=== PATIENT | male | born 1940 | race Caucasian/White ===

== ENCOUNTER 2019-03-12 17:50 | Observation (INO) | payer OTHER ==
[2019-03-12 18:36] VITALS: BMI 28.1
--- NOTE | 2019-03-12 19:05 | PDOC ---
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 Last night, noted chills, cloudy urine. Symptoms similar to previous episodes when he had UTI. This morning woke up with SOB worse with sitting up and exertion. Denied recent travel. Denied fevers, nausea/vomiting, cough, chest pain, AB pain, diarrhea/constipation. Past History - Past Medical History Allergies/Adverse Reactions: Allergies Allergy/AdvReac Type Severity Reaction Status Date / Time levofloxacin [From Levaquin] Allergy Verified 03/12/19 17:57 Home Medications: Ambulatory Orders Lovastatin 40 mg PO HS 12/17/11 Topiramate [Topamax] 50 mg PO HS 12/17/11 Aspirin Coated [Ecotrin -] 81 mg PO DAILY #0 tablet.ec 11/02/14 Cholecalciferol (Vitamin D3) [Vitamin D3 -] 400 unit PO DAILY 03/12/19 Cardiac Disorders: Yes COPD: No GI Disorders: Yes (DIVERTICULITIS) Disorders: Yes (BPH) Hypercholesterolemia: Yes (LIPITO) Seizures: Yes - Surgical History Orthopedic Surgery: Yes (MENISCUS) - Suicide/Smoking/Psychosocial Hx Smoking Status: Yes Smoking History: Former smoker Have you smoked in the past 12 months: No Number of Cigarettes Smoked Daily: 0 Information on smoking cessation initiated: No Hx Alcohol Use: No Drug/Substance Use Hx: No Hx Substance Use Treatment: No Review of Systems - Review of Systems Constitutional: Yes: Chills. No: Fever, Malaise, Weakness HEENTM: No: Eye Pain, Nose Pain, Hearing Loss, Throat Pain, Mouth Pain Respiratory: No: Cough, Shortness of Breath Cardiac (ROS): No: Chest Pain, Edema, Lightheadedness, Palpitations, Syncope ABD/GI: No: Abdominal Distended, Constipated, Diarrhea, Nausea, Rectal Bleeding , Vomiting : Yes: Other (cloudy urine). No: Burning, Dysuria, Discharge, Frequency, Flank Pain, Hematuria, Incontinence Musculoskeletal: No: Back Pain, Joint Pain, Joint Swelling, Muscle Pain Integumentary: No: Bruising, Dryness, Erythema, Flushing Neurological: No: Headache, Numbness, Seizure, Tingling, Tremors Psychiatric: No: Anxiety, Depression Endocrine: No: Excessive Sweating, Flushing, Intolerance to Cold, Intolerance to Heat Hematologic/Lymphatic: No: Anemia, Blood Clots, Easy Bleeding *Physical Exam - Vital Signs Last Vital Signs Temp Pulse Resp BP Pulse Ox 98.4 F 93 H 22 H 111/72 96 03/12/19 17:54 03/12/19 17:54 03/12/19 17:54 03/12/19 17:54 03/12/19 17:54 - Physical Exam General Appearance: Yes: Nourished, Appropriately Dressed, Mild Distress HEENT: positive: EOMI, NESHA, Normal Voice, Hearing Grossly Normal. negative: Pale Conjunctivae, Nasal Congestion, Rhinorrhea, Lesions, Gomez Respiratory/Chest: positive: Lungs Clear, Normal Breath Sounds, Respiratory Distress, Labored Respiration. negative: Chest Tender, Accessory Muscle Use, Crackles, Rales, Rhonchi, Stridor, Wheezing Cardiovascular: positive: Regular Rhythm, Regular Rate, S1, S2. negative: Edema , Murmur Gastrointestinal/Abdominal: positive: Normal Bowel Sounds, Tender (LUQ, L flank) , Distended (baseline), Rebound (LUQ, L flank). negative: Organomegaly, Guarding, Hernia, Mass Integumentary: positive: Normal Color Neurologic: positive: Fully Oriented, Alert, Normal Mood/Affect, Normal Response , Motor Strength 5/5, Responsive. negative: Numbness, Confused, Disoriented Heart Score/ECG Review - History History: Slightly suspicious - Electrocardiogram EKG: Normal - Age Age: >/= 65 - Risk Factors Risk Factors Heart Score: Yes Hx Hypercholesterolemia, Yes Hx Hypertension, Yes Smoking History Based on the list above the patient has:: >/=3 risk factors or Hx atherosclerotic disease - Troponin Troponin: </= normal limit - Score Heart Score - Total: 4 ED Treatment Course - LABORATORY CBC & Chemistry Diagram: 03/12/19 19:35 03/12/19 19:35 - RADIOLOGY Radiology Studies Ordered: Category Date Time Status CHEST PA & LAT [RAD] Stat Radiology 03/12/19 19:04 Ordered Medical Decision Making - Medical Decision Making 03/12/19 19:24 EKG CXR CBC CMP d-dimer lactate UA BNP Attending noted rigors on exam. 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 UA showed leuk esterase indicating UTI. Trop negative, Cr 2.1 baseline. Attending noted rigors on exam - given tylenol, blood/urine cx, 1g IV rocephin. SOB resolved in ED. Plan to admit to obvs for UTI and cardiac observation. Signed out to Dr. Washburn *DC/Admit/Observation/Transfer Diagnosis at time of Disposition: UTI (urinary tract infection) Qualifiers: Urinary tract infection type: acute cystitis Hematuria presence: without hematuria Qualified Code(s): N30.00 - Acute cystitis without hematuria - Discharge Dispostion Condition at time of disposition: Stable Decision to Admit order: Yes - Referrals - Patient Instructions - Post Discharge Activity
[2019-03-12] MEDS ORDERED: ACETAMINOPHEN 1000 MG/100 ML VIAL (NON FORMULARY) IVPB ONE ×2 (19:28→19:39)
[2019-03-12] MEDS ORDERED: ACETAMINOPHEN 500 MG TABLET (FP) PO ONE (19:30)
[2019-03-12] MEDS ORDERED: ACETAMINOPHEN 500 MG TABLET (FP) ONE (19:31)
--- NOTE | 2019-03-12 19:31 | PDOC ---
Attending Attestation - ED Attending Attestation I have performed the following: I have examined & evaluated the patient, The case was reviewed & discussed with the resident, I agree w/resident's findings & plan, Exceptions are as noted - HPI HPI: 03/12/19 19:34 This is a 78-year-old male with hypertension, hyperlipidemia, coronary artery disease status post stent placed May 2014. Patient also has frequent urinary tract infection secondary to a neurogenic bladder that requires self- catheterization 3 times a day. Patient's neurogenic bladder is a result of frequent abdominal surgeries for small bowel obstruction. Patient also has an atrophic right kidney since patient comes in today complaining of shortness of breath and shaking chills with a foul-smelling urine. As per patient he would not come in for the urinary symptoms as he does have an antibiotic that he started this morning however the shortness of breath prompted him to come in for further evaluation. He denies any abdominal pain, flank pain, nausea vomiting or diarrhea. Patient denies any chest pain or diaphoresis. Patient's last dose of Tylenol was approximately 4 hours ago. When I went in to examine patient he was experiencing aching chills. - Physicial Exam PE: 03/12/19 19:36 Allergies: as per nursing notes Past Medical History: As per history of present illness Social history: Lives with family. No smoking. No alcohol. No illicit drugs. Surgical history: As per history of present illness General: + fevers + shaking chills, no weakness, no weight loss HEENT: No change in vision. No sore throat,. No ear pain CardioVascular: no chest discomfort. + shortness of breath Respiratory:No cough, or wheezing. Gastrointestinal: no nausea, vomiting, diarrhea or constipation, No rectal bleeding Genitourinary: + dysuria, hematuria, or frequency, + foul smelling, cloudy urine Musculoskeletal: No joint or muscle pain or swelling Neurologic: No headache, vertigo, dizziness or loss of consciousness Psychiatric: nor depression Skin: No rashes or easy bruising Endocrine: no increased thirst or abnormal weight change Allergic: no skin or latex allergy All other systems reviewed and normal Exam: General: Well-nourished well-developed individual, no acute distress, experiencing shaking chills. HEENT: Throat: Normal, tonsils normal, no erythema or exudate Neck: Supple, no meningeal signs, no lymphadenopathy Eyes::Pupils equal reactive and round, extraocular motion intact Chest: Nontender to palpation Cardiac: S1-S2 normal, regular rate and rhythm, no murmurs rubs or gallops Respiratory: Lungs clear to auscultation bilateral Abdomen: Soft, nondistended, normal bowel sounds, there is no tenderness on palpation diffusely Extremities: Warm, dry, no cyanosis, clubbing, or edema Skin: No rashes Neuro: Alert and oriented x3, CN II - XII intact, nonfocal exam with normal strength, normal sensation, normal reflexes, normal gait, Psych: Normal mood and affect - Medical Decision Making 03/12/19 19:41 Assessment and plan: This is 78-year-old male who comes in complaining of urinary tract infection symptoms including Reiger's foul-smelling urine and also complaining of shortness of breath. Workup initiated in conjunction with discussion with resident including CBC, comp, UA. Urine culture, blood cultures, lactic acid, d-dimer, BMP. patient given Tylenol for his fever and IV fluids. 03/12/19 20:28 Chest x-ray no acute pathology EKG shows normal sinus rhythm at a rate of 87, old inferior infarct, no acute ST -T wave changes
[2019-03-12] MEDS ORDERED: ACETAMINOPHEN INJECTION 100 ML IVPB ONE (19:33)
[2019-03-12 20:04] LABS: HEMOGLOBIN 15.7 GM/dl (11.7-16.9)
[2019-03-12 20:06] LABS: BILIRUBIN,TOTAL 0.6 mg/dl (0.2-1); CALCIUM 9.2 mg/dl (8.5-10); CREATININE 2.1 mg/dl (0.55-1.3); POTASSIUM 4.5 mmol/L (3.5-5.1); TOT PROT 6.6 g/dl (6.4-8.2)
[2019-03-12 20:12] LABS: BASO % 0.3 % (0-2.0); EOS % 0.3 % (0-4.5); HEMATOCRIT 46.4 % (35.4-49); LYMPH % 5.8 % (8-40); MCH 31.5 pg (25.7-33.7); MCHC 33.8 g/dl (32.0-35.9); MEAN CELL VOLUME 93.1 fl (80-96); MONO % 4.4 % (3.8-10.2); NEUT % 89.2 % (42.8-82.8); PLATELET COUNT 211 K/MM3 (134-434); RBC 4.99 M/mm3 (4.00-5.60); WHITE BLOOD COUNT 11.3 K/mm3 (4.0-10.8)
[2019-03-12] MEDS ORDERED: cefTRIAXone SODIUM 1 GM VIAL ONE (21:25)
--- NOTE | 2019-03-12 22:33 | HP ---
CHIEF COMPLAINT: SOB, Fever, Chills, Foul Smelling Urine PCP: Dr. Mary HISTORY OF PRESENT ILLNESS: This is a 78 y/o man with significant medical history of CAD s/p Stent 2014, HLD , Atrophic R- Kidney (from ), Renal Insufficiency, Spastic/Neurogenic Bladder (due to multiple Abdominal Sx, self-catheterization), Chronic UTIs. Who presents to the ED for SOB at rest, subjective fever 101, shaking, chills, and foul smelling urine. Patient reports noting his urine was a "creamy white color " he called his PCP who started him on Macrobid yesterday. Patient denies chest pain, palpitations. arm or leg pain/weakness. Patient denies cough, dizziness, HURLEY, AP, N/V/D, constipation, melena, hematuria ER course was notable for: (1) UA- +1 leukocyte esterase, 20-40 WBC, trace ketones, +1 bilirubin (2) WBC 11.3 withL shift (3) BUN 29, Cr 2.1 (4) Troponin < 0.03 (5) EKG- NSR with inferior infarct age undetermined Recent Travel: None PAST MEDICAL HISTORY: See HPI PAST SURGICAL HISTORY: See HPI Social History: Smoking: Former Alcohol: Denies Drugs: Denies Retired, lives with souse Family History: Allergies levofloxacin [From Levaquin] Allergy (Verified 03/12/19 17:57) HOME MEDICATIONS: Home Medications Medication Instructions Recorded Lovastatin 40 mg PO HS 12/17/11 Topiramate [Topamax] 50 mg PO HS 12/17/11 Aspirin Coated [Ecotrin -] 81 mg PO DAILY #0 tablet.ec 11/02/14 Cholecalciferol (Vitamin D3) 400 unit PO DAILY 03/12/19 [Vitamin D3 -] REVIEW OF SYSTEMS CONSTITUTIONAL: Absent: fever, chills, diaphoresis, generalized weakness, malaise, loss of appetite, weight change HEENT: Absent: rhinorrhea, nasal congestion, throat pain, throat swelling, difficulty swallowing, mouth swelling, ear pain, eye pain, visual changes CARDIOVASCULAR: Absent: chest pain, syncope, palpitations, irregular heart rate, lightheadedness , peripheral edema RESPIRATORY: shortness of breath Absent: cough, dyspnea with exertion, orthopnea, wheezing, stridor, hemoptysis GASTROINTESTINAL: Absent: abdominal pain, abdominal distension, nausea, vomiting, diarrhea, constipation, melena, hematochezia GENITOURINARY: foul smelling urine, creamy white in color Absent: dysuria, frequency, urgency, hesitancy, hematuria, flank pain, genital pain MUSCULOSKELETAL: Absent: myalgia, arthralgia, joint swelling, back pain, neck pain SKIN: Absent: rash, itching, pallor HEMATOLOGIC/IMMUNOLOGIC: Absent: easy bleeding, easy bruising, lymphadenopathy, frequent infections ENDOCRINE: Absent: unexplained weight gain, unexplained weight loss, heat intolerance, cold intolerance NEUROLOGIC: Absent: headache, focal weakness or paresthesias, dizziness, unsteady gait, seizure, mental status changes, bladder or bowel incontinence PSYCHIATRIC: Absent: anxiety, depression, suicidal or homicidal ideation, hallucinations. PHYSICAL EXAMINATION Vital Signs - 24 hr 03/12/19 03/12/19 17:54 20:28 Temperature 98.4 F 98.7 F Pulse Rate 93 H Pulse Rate [ 78 Right] Respiratory 22 H 20 Rate Blood Pressure 111/72 Blood Pressure 124/63 [Left Arm] O2 Sat by Pulse 96 97 Oximetry (%) GENERAL: Awake, alert, and fully oriented, in no acute distress. HEAD: Normal with no signs of trauma. EYES: Pupils equal, round and reactive to light, extraocular movements intact, sclera anicteric, conjunctiva clear. No lid lag. EARS, NOSE, THROAT: Ears normal, nares patent, oropharynx clear without exudates. Dry mucous membranes. NECK: Normal range of motion, supple without lymphadenopathy, JVD, or masses. LUNGS: Breath sounds equal, clear to auscultation bilaterally. No wheezes, and no crackles. No accessory muscle use. HEART: Regular rate and rhythm, normal S1 and S2 without murmur, rub or gallop. ABDOMEN: Soft, nontender, not distended, normoactive bowel sounds, no guarding, no rebound, no masses. No hepatomegaly or splenomegaly. MUSCULOSKELETAL: Normal range of motion at all joints. No bony deformities or tenderness. No CVA tenderness. UPPER EXTREMITIES: 2+ pulses, warm, well-perfused. No cyanosis. No clubbing. No peripheral edema. LOWER EXTREMITIES: 2+ pulses, warm, well-perfused. No calf tenderness. No peripheral edema. NEUROLOGICAL: Cranial nerves II-XII intact. Normal speech. Gait not observed. PSYCHIATRIC: Cooperative. Good eye contact. Appropriate mood and affect. SKIN: Warm, dry, normal turgor, no rashes or lesions noted, normal capillary refill. Laboratory Results - last 24 hr 03/12/19 03/12/19 03/12/19 19:35 19:35 19:35 WBC 11.3 H RBC 4.99 Hgb 15.7 Hct 46.4 MCV 93.1 MCH 31.5 MCHC 33.8 RDW 14.0 Plt Count 211 D MPV 8.0 Absolute Neuts (auto) 10.1 Neutrophils % 89.2 H D Lymphocytes % 5.8 L D Monocytes % 4.4 Eosinophils % 0.3 D Basophils % 0.3 D-Dimer Sodium 143 Potassium 4.5 Chloride 113 H Carbon Dioxide 23 Anion Gap 7 L BUN 29.0 H Creatinine 2.1 H Est GFR (CKD-EPI)AfAm 33.92 Est GFR (CKD-EPI)NonAf 29.27 Random Glucose 103 Lactic Acid Calcium 9.2 Total Bilirubin 0.6 AST 22 ALT 14 Alkaline Phosphatase 62 Creatine Kinase 86 Troponin I < 0.03 B-Natriuretic Peptide Total Protein 6.6 Albumin 4.0 Urine Color Urine Appearance Urine pH Urine Protein Urine Glucose (UA) Urine Ketones Urine Blood Urine Nitrite Urine Bilirubin Urine Urobilinogen Ur Leukocyte Esterase Urine RBC Urine WBC Urine Bacteria 03/12/19 03/12/19 03/12/19 19:35 19:35 19:35 WBC RBC Hgb Hct MCV MCH MCHC RDW Plt Count MPV Absolute Neuts (auto) Neutrophils % Lymphocytes % Monocytes % Eosinophils % Basophils % D-Dimer Cancelled Sodium Potassium Chloride Carbon Dioxide Anion Gap BUN Creatinine Est GFR (CKD-EPI)AfAm Est GFR (CKD-EPI)NonAf Random Glucose Lactic Acid 1.8 Calcium Total Bilirubin AST ALT Alkaline Phosphatase Creatine Kinase Troponin I B-Natriuretic Peptide 293.3 Total Protein Albumin Urine Color Urine Appearance Urine pH Urine Protein Urine Glucose (UA) Urine Ketones Urine Blood Urine Nitrite Urine Bilirubin Urine Urobilinogen Ur Leukocyte Esterase Urine RBC Urine WBC Urine Bacteria 03/12/19 20:35 WBC RBC Hgb Hct MCV MCH MCHC RDW Plt Count MPV Absolute Neuts (auto) Neutrophils % Lymphocytes % Monocytes % Eosinophils % Basophils % D-Dimer Sodium Potassium Chloride Carbon Dioxide Anion Gap BUN Creatinine Est GFR (CKD-EPI)AfAm Est GFR (CKD-EPI)NonAf Random Glucose Lactic Acid Calcium Total Bilirubin AST ALT Alkaline Phosphatase Creatine Kinase Troponin I B-Natriuretic Peptide Total Protein Albumin Urine Color Dark Urine Appearance Slightly Urine pH 5.5 Urine Protein Trace Urine Glucose (UA) Negative Urine Ketones Trace Urine Blood Negative Urine Nitrite Negative Urine Bilirubin 1+ H Urine Urobilinogen 0.2 Ur Leukocyte Esterase 1+ Urine RBC 2-5 Urine WBC 20-40 Urine Bacteria Few ASSESSMENT/PLAN: This is a 78 y/o man with a significant medical hx of: CAD s/p Stent (2013), HLD , Atrophic R- Kidney (from ), Renal Insufficiency, Spastic/Neurogenic Bladder (due to multiple abdominal surgeries), Chronic UTIs. Placed in Observation for SOB on rest r/o Angina, UTI for further evaluation of their emergent condition. Plan: See Problem List FEN PO fluids as tolerated Replete lytes prn Low Cholesterol, Low Na Diet DVT ppx OOB SCDs Consider AC if LOS > 48 hrs Dispo: Observation Problem List - Problem (1) SOB (shortness of breath) Assessment/Plan: r/o Angina HEART Score 4 Continue cardiac monitoring Serial Enzymes neg x1, trend Chest Xray- reviewed Duonebs prn O2 Consider Cardiology consult Consider Pulm consult Code(s): R06.02 - SHORTNESS OF BREATH (2) Urinary tract infection Assessment/Plan: Will treat for Failed Outpatient Therapy, Complicated UTI UA- +1 leukocyte esterase, 20-40 WBCs Urine culture-pending WBC 11.3 with L- shift Lactic acid- nl Started on Ceftriaxone will continue Consider ID consult Monitor CBC Monitor vitals Code(s): N39.0 - URINARY TRACT INFECTION, SITE NOT SPECIFIED Qualifiers: Urinary tract infection type: acute cystitis Hematuria presence: without hematuria Qualified Code(s): N30.00 - Acute cystitis without hematuria (3) Fever and chills Assessment/Plan: see above Code(s): R50.9 - FEVER, UNSPECIFIED (4) CAD (coronary artery disease) Assessment/Plan: s/p Stent EKG- NSR, inferior infarct age undetermined Chest Xray- reviewed Continue home meds Code(s): I25.10 - ATHSCL HEART DISEASE OF [place] CORONARY ARTERY W/O ANG PCTRS Visit type - Emergency Visit Emergency Visit: Yes ED Registration Date: 03/12/19 Care time: The patient presented to the Emergency Department on the above date and was hospitalized for further evaluation of their emergent condition. - New Patient This patient is new to me today: Yes Date on this admission: 03/12/19 - Critical Care Critical Care patient: No
[2019-03-13] MEDS ORDERED: ACETAMINOPHEN 325 MG TABLET (FP) PO PRN (01:00)
[2019-03-13 07:44] LABS: BASO % 0.3 % (0-2.0); EOS % 1.1 % (0-4.5); HEMATOCRIT 42.7 % (35.4-49); HEMOGLOBIN 13.8 GM/dl (11.7-16.9); LYMPH % 11.1 % (8-40); MCH 30.1 pg (25.7-33.7); MCHC 32.3 g/dl (32.0-35.9); MEAN CELL VOLUME 93.2 fl (80-96); MEAN PLT VOLUME 8.2 fl (7.5-11.1); MONO % 11.6 % (3.8-10.2); NEUT % 75.9 % (42.8-82.8); PLATELET COUNT 167 K/MM3 (134-434); RBC 4.59 M/mm3 (4.00-5.60); RDW 13.9 % (11.9-15.9); WHITE BLOOD COUNT 7.2 K/mm3 (4.0-10.8)
[2019-03-13 08:48] LABS: CALCIUM 8.5 mg/dl (8.5-10); CREATININE 2.1 mg/dl (0.55-1.3); POTASSIUM 3.7 mmol/L (3.5-5.1)
[2019-03-13] MEDS ORDERED: CEFTRIAXONE 1 G/50 ML PREMIX 50 ML IVPB SCH (10:00)
--- NOTE | 2019-03-13 11:42 | PN ---
Physical Exam: SUBJECTIVE: Patient seen and examined OBJECTIVE: Vital Signs Period Temp Pulse Resp BP Sys/Benavidez Pulse Ox Last 24 Hr 98.4 F-99.6 F 63-93 17-22 100-124/49-72 96-97 GENERAL: The patient is awake, alert, and fully oriented, in no acute distress. HEAD: Normal with no signs of trauma. EYES: PERRL, extraocular movements intact, sclera anicteric, conjunctiva clear. No ptosis. ENT: Ears normal, nares patent, oropharynx clear without exudates, moist mucous membranes. NECK: Trachea midline, full range of motion, supple. LUNGS: Breath sounds equal, clear to auscultation bilaterally, no wheezes, no crackles, no accessory muscle use. HEART: Regular rate and rhythm, S1, S2 without murmur, rub or gallop. ABDOMEN: Soft, nontender, nondistended, normoactive bowel sounds, no guarding, no rebound, no hepatosplenomegaly, no masses. EXTREMITIES: 2+ pulses, warm, well-perfused, no edema. NEUROLOGICAL: Cranial nerves II through XII grossly intact. Normal speech, gait not observed. PSYCH: Normal mood, normal affect. SKIN: Warm, dry, normal turgor, no rashes or lesions noted Laboratory Results - last 24 hr 03/12/19 03/12/19 03/12/19 19:35 19:35 19:35 WBC 11.3 H RBC 4.99 Hgb 15.7 Hct 46.4 MCV 93.1 MCH 31.5 MCHC 33.8 RDW 14.0 Plt Count 211 D MPV 8.0 Absolute Neuts (auto) 10.1 Neutrophils % 89.2 H D Lymphocytes % 5.8 L D Monocytes % 4.4 Eosinophils % 0.3 D Basophils % 0.3 D-Dimer Sodium 143 Potassium 4.5 Chloride 113 H Carbon Dioxide 23 Anion Gap 7 L BUN 29.0 H Creatinine 2.1 H Est GFR (CKD-EPI)AfAm 33.92 Est GFR (CKD-EPI)NonAf 29.27 Random Glucose 103 Lactic Acid Calcium 9.2 Total Bilirubin 0.6 AST 22 ALT 14 Alkaline Phosphatase 62 Creatine Kinase 86 Troponin I < 0.03 B-Natriuretic Peptide Total Protein 6.6 Albumin 4.0 Triglycerides Cholesterol Total LDL Cholesterol HDL Cholesterol Urine Color Urine Appearance Urine pH Urine Protein Urine Glucose (UA) Urine Ketones Urine Blood Urine Nitrite Urine Bilirubin Urine Urobilinogen Ur Leukocyte Esterase Urine RBC Urine WBC Urine Bacteria 03/12/19 03/12/19 03/12/19 19:35 19:35 19:35 WBC RBC Hgb Hct MCV MCH MCHC RDW Plt Count MPV Absolute Neuts (auto) Neutrophils % Lymphocytes % Monocytes % Eosinophils % Basophils % D-Dimer Cancelled Sodium Potassium Chloride Carbon Dioxide Anion Gap BUN Creatinine Est GFR (CKD-EPI)AfAm Est GFR (CKD-EPI)NonAf Random Glucose Lactic Acid 1.8 Calcium Total Bilirubin AST ALT Alkaline Phosphatase Creatine Kinase Troponin I B-Natriuretic Peptide 293.3 Total Protein Albumin Triglycerides Cholesterol Total LDL Cholesterol HDL Cholesterol Urine Color Urine Appearance Urine pH Urine Protein Urine Glucose (UA) Urine Ketones Urine Blood Urine Nitrite Urine Bilirubin Urine Urobilinogen Ur Leukocyte Esterase Urine RBC Urine WBC Urine Bacteria 03/12/19 03/13/19 03/13/19 20:35 00:00 00:00 WBC RBC Hgb Hct MCV MCH MCHC RDW Plt Count MPV Absolute Neuts (auto) Neutrophils % Lymphocytes % Monocytes % Eosinophils % Basophils % D-Dimer Sodium Potassium Chloride Carbon Dioxide Anion Gap BUN Creatinine Est GFR (CKD-EPI)AfAm Est GFR (CKD-EPI)NonAf Random Glucose Lactic Acid Calcium Total Bilirubin AST ALT Alkaline Phosphatase Creatine Kinase Troponin I Cancelled < 0.02 B-Natriuretic Peptide Total Protein Albumin Triglycerides Cholesterol Total LDL Cholesterol HDL Cholesterol Urine Color Dark Urine Appearance Slightly Urine pH 5.5 Urine Protein Trace Urine Glucose (UA) Negative Urine Ketones Trace Urine Blood Negative Urine Nitrite Negative Urine Bilirubin 1+ H Urine Urobilinogen 0.2 Ur Leukocyte Esterase 1+ Urine RBC 2-5 Urine WBC 20-40 Urine Bacteria Few 03/13/19 03/13/19 03/13/19 07:09 07:09 07:09 WBC 7.2 RBC 4.59 Hgb 13.8 Hct 42.7 MCV 93.2 MCH 30.1 MCHC 32.3 RDW 13.9 Plt Count 167 D MPV 8.2 Absolute Neuts (auto) 5.5 Neutrophils % 75.9 Lymphocytes % 11.1 D Monocytes % 11.6 H D Eosinophils % 1.1 D Basophils % 0.3 D-Dimer Sodium 139 Potassium 3.7 Chloride 111 H Carbon Dioxide 20 L Anion Gap 8 BUN 28.0 H Creatinine 2.1 H Est GFR (CKD-EPI)AfAm 33.92 Est GFR (CKD-EPI)NonAf 29.27 Random Glucose 106 Lactic Acid Calcium 8.5 Total Bilirubin AST ALT Alkaline Phosphatase Creatine Kinase Troponin I < 0.03 B-Natriuretic Peptide Total Protein Albumin Triglycerides 116 Cholesterol 137 Total LDL Cholesterol 85 HDL Cholesterol 29 L Urine Color Urine Appearance Urine pH Urine Protein Urine Glucose (UA) Urine Ketones Urine Blood Urine Nitrite Urine Bilirubin Urine Urobilinogen Ur Leukocyte Esterase Urine RBC Urine WBC Urine Bacteria Active Medications Generic Name Dose Route Start Last Admin Trade Name Freq PRN Reason Stop Dose Admin Acetaminophen 650 mg 03/13/19 01:00 Tylenol - PO Q6H PRN PAIN OR FEVER Ceftriaxone Sodium 50 mls @ 200 mls/hr 03/13/19 10:00 03/13/19 10:20 Ceftriaxone 1 Gm-D5w Bag IVPB 03/16/19 09:59 200 mls/hr DAILY HUMBLE Administration Protocol ASSESSMENT/PLAN: SOB troponins neg x 3 BNP wnl pre post not orthostatic echo call daycare worker
[2019-03-13] MEDS ORDERED: TOPIRAMATE 25 MG TABLET (FP) PO SCH (11:45)
[2019-03-13] MEDS ORDERED: PATIENT'S OWN MEDICATION (NON-FORMULARY) (Topiramate [Topamax] 50 MG) PO SCH (11:45)
--- NOTE | 2019-03-13 13:42 | EKG ---
Test Reason : Blood Pressure : / mmHG Vent. Rate : 087 BPM Atrial Rate : 087 BPM P-R Int : 148 ms QRS Dur : 078 ms QT Int : 348 ms P-R-T Axes : 055 002 065 degrees QTc Int : 418 ms NORMAL SINUS RHYTHM INFERIOR INFARCT , AGE UNDETERMINED ABNORMAL ECG NO PREVIOUS ECGS AVAILABLE Confirmed by Edward Lord MD ([id number]) on 03/13/2019 1:42:07 PM Referred By: DR NGUYEN Confirmed By:Edward Lord MD
[2019-03-13 14:20] VITALS: BP 118/71; PULSE 78; TEMP 98.6
--- NOTE | 2019-03-13 15:04 | ECHO ---
Name: LAURO VALDES Exam:Adult Echocardiogram Study Date: 03/13/2019 01:39 PM Age: 78 yrs Reason For Study: SOB Height: 68 in Weight: 185 lb BSA: 2.0 m2 MMode/2D Measurements & Calculations IVSd: 0.99 cm Ao root diam: 3.1 cm LVIDd: 3.9 cm LA dimension: 2.8 cm LVIDs: 2.2 cm LVPWd: 0.82 cm EDV(Teich): 66.7 ml LVOT diam: 2.0 cm ESV(Teich): 16.7 ml Doppler Measurements & Calculations MV E max marco: 92.7 cm/sec MV A max marco: 99.6 cm/sec MV dec slope: 427.2 cm/sec2 MV E/A: 0.93 Ao V2 max: 149.2 cm/sec LV V1 max P.8 mmHg Ao max P.9 mmHg LV V1 max: 84.0 cm/sec ERIN(V,D): 1.8 cm2 MR max marco: 189.3 cm/sec TR max marco: 225.1 cm/sec MR max P.4 mmHg TR max P.3 mmHg PA V2 max: 121.7 cm/sec PI end-d marco: 106.0 cm/sec PA max P.9 mmHg Procedure A complete two-dimensional transthoracic echocardiogram was performed (2D, M-mode, Doppler and color flow Doppler). Left Ventricle The left ventricular size, thickness and function are normal. Ejection Fraction = 65%. E/A reversal c onsistent with but not diagnostic of poor LV compliance. The left ventricular wall motion is normal. Right Ventricle The right ventricle is normal in size and function. Atria Normal left and right atrial size and function. Mitral Valve There is mild mitral annular calcification. There is mild mitral regurgitation. Tricuspid Valve The tricuspid valve is normal in structure and function. There is trace tricuspid regurgitation. Righ t ventricular systolic pressure is 30 mmhg. Aortic Valve There is moderate aortic valve thickening. No hemodynamically significant valvular aortic stenosis. Pulmonic Valve The pulmonic valve is not well visualized. Great Vessels The aortic root is normal size. Pericardium/Pleura There is no pericardial effusion. There is no pleural effusion. Interpretation Summary The left ventricular size, thickness and function are normal Ejection Fraction = 65%. The right ventricle is normal in size and function. There is mild mitral annular calcification. There is mild mitral regurgitation. There is trace tricuspid regurgitation. There is moderate aortic valve thickening. Right ventricular systolic pressure is 30 mmhg. MD Edward Lord 03/13/2019 03:04 PM
--- NOTE | 2019-03-13 15:14 | DS ---
Physical Exam: SUBJECTIVE: Patient seen and examined OBJECTIVE: Vital Signs Period Temp Pulse Resp BP Sys/Benavidez Pulse Ox Last 24 Hr 98.4 F-99.6 F 63-93 17-22 98-124/49-72 96-100 PHYSICAL EXAM GENERAL: The patient is awake, alert, and fully oriented, in no acute distress. HEAD: Normal with no signs of trauma. EYES: PERRL, extraocular movements intact, sclera anicteric, conjunctiva clear. ENT: Ears normal, nares patent, oropharynx clear without exudates, moist mucous membranes. NECK: Trachea midline, full range of motion, supple. LUNGS: Breath sounds equal, clear to auscultation bilaterally, no wheezes, no crackles, no accessory muscle use. HEART: Regular rate and rhythm, S1, S2 without murmur, rub or gallop. ABDOMEN: Soft, nontender, nondistended, normoactive bowel sounds, no guarding, no rebound, no hepatosplenomegaly, no masses. EXTREMITIES: 2+ pulses, warm, well-perfused, no edema. NEUROLOGICAL: Cranial nerves II through XII grossly intact. Normal speech, gait not observed. PSYCH: Normal mood, normal affect. SKIN: Warm, dry, normal turgor, no rashes or lesions noted. LABS Laboratory Results - last 24 hr 03/12/19 03/12/19 03/12/19 19:35 19:35 19:35 WBC 11.3 H RBC 4.99 Hgb 15.7 Hct 46.4 MCV 93.1 MCH 31.5 MCHC 33.8 RDW 14.0 Plt Count 211 D MPV 8.0 Absolute Neuts (auto) 10.1 Neutrophils % 89.2 H D Lymphocytes % 5.8 L D Monocytes % 4.4 Eosinophils % 0.3 D Basophils % 0.3 D-Dimer Sodium 143 Potassium 4.5 Chloride 113 H Carbon Dioxide 23 Anion Gap 7 L BUN 29.0 H Creatinine 2.1 H Est GFR (CKD-EPI)AfAm 33.92 Est GFR (CKD-EPI)NonAf 29.27 Random Glucose 103 Lactic Acid Calcium 9.2 Total Bilirubin 0.6 AST 22 ALT 14 Alkaline Phosphatase 62 Creatine Kinase 86 Troponin I < 0.03 B-Natriuretic Peptide Total Protein 6.6 Albumin 4.0 Triglycerides Cholesterol Total LDL Cholesterol HDL Cholesterol Urine Color Urine Appearance Urine pH Urine Protein Urine Glucose (UA) Urine Ketones Urine Blood Urine Nitrite Urine Bilirubin Urine Urobilinogen Ur Leukocyte Esterase Urine RBC Urine WBC Urine Bacteria 03/12/19 03/12/19 03/12/19 19:35 19:35 19:35 WBC RBC Hgb Hct MCV MCH MCHC RDW Plt Count MPV Absolute Neuts (auto) Neutrophils % Lymphocytes % Monocytes % Eosinophils % Basophils % D-Dimer Cancelled Sodium Potassium Chloride Carbon Dioxide Anion Gap BUN Creatinine Est GFR (CKD-EPI)AfAm Est GFR (CKD-EPI)NonAf Random Glucose Lactic Acid 1.8 Calcium Total Bilirubin AST ALT Alkaline Phosphatase Creatine Kinase Troponin I B-Natriuretic Peptide 293.3 Total Protein Albumin Triglycerides Cholesterol Total LDL Cholesterol HDL Cholesterol Urine Color Urine Appearance Urine pH Urine Protein Urine Glucose (UA) Urine Ketones Urine Blood Urine Nitrite Urine Bilirubin Urine Urobilinogen Ur Leukocyte Esterase Urine RBC Urine WBC Urine Bacteria 03/12/19 03/13/19 03/13/19 20:35 00:00 00:00 WBC RBC Hgb Hct MCV MCH MCHC RDW Plt Count MPV Absolute Neuts (auto) Neutrophils % Lymphocytes % Monocytes % Eosinophils % Basophils % D-Dimer Sodium Potassium Chloride Carbon Dioxide Anion Gap BUN Creatinine Est GFR (CKD-EPI)AfAm Est GFR (CKD-EPI)NonAf Random Glucose Lactic Acid Calcium Total Bilirubin AST ALT Alkaline Phosphatase Creatine Kinase Troponin I Cancelled < 0.02 B-Natriuretic Peptide Total Protein Albumin Triglycerides Cholesterol Total LDL Cholesterol HDL Cholesterol Urine Color Dark Urine Appearance Slightly Urine pH 5.5 Urine Protein Trace Urine Glucose (UA) Negative Urine Ketones Trace Urine Blood Negative Urine Nitrite Negative Urine Bilirubin 1+ H Urine Urobilinogen 0.2 Ur Leukocyte Esterase 1+ Urine RBC 2-5 Urine WBC 20-40 Urine Bacteria Few 03/13/19 03/13/19 03/13/19 07:09 07:09 07:09 WBC 7.2 RBC 4.59 Hgb 13.8 Hct 42.7 MCV 93.2 MCH 30.1 MCHC 32.3 RDW 13.9 Plt Count 167 D MPV 8.2 Absolute Neuts (auto) 5.5 Neutrophils % 75.9 Lymphocytes % 11.1 D Monocytes % 11.6 H D Eosinophils % 1.1 D Basophils % 0.3 D-Dimer Sodium 139 Potassium 3.7 Chloride 111 H Carbon Dioxide 20 L Anion Gap 8 BUN 28.0 H Creatinine 2.1 H Est GFR (CKD-EPI)AfAm 33.92 Est GFR (CKD-EPI)NonAf 29.27 Random Glucose 106 Lactic Acid Calcium 8.5 Total Bilirubin AST ALT Alkaline Phosphatase Creatine Kinase Troponin I < 0.03 B-Natriuretic Peptide Total Protein Albumin Triglycerides 116 Cholesterol 137 Total LDL Cholesterol 85 HDL Cholesterol 29 L Urine Color Urine Appearance Urine pH Urine Protein Urine Glucose (UA) Urine Ketones Urine Blood Urine Nitrite Urine Bilirubin Urine Urobilinogen Ur Leukocyte Esterase Urine RBC Urine WBC Urine Bacteria HOSPITAL COURSE: Date of Admission:03/12/19 Date of Discharge: 03/13/19 SOB troponins neg x 3 BNP wnl pre post not orthostatic echo call government affairs fellow Echo: LV normal, EF 65%; RV normal; mild MR; trace TR Discharge Summary Reason For Visit: SOB Current Active Problems CAD (coronary artery disease) (Acute) SOB (shortness of breath) (Acute) Urinary tract infection (Acute) Condition: Improved - Instructions Diet, Activity, Other Instructions: You have a urinary tract infection. You indicated you have a 10-day supply of Macrobid waiting to be picked up at your pharmacy. Be sure to take this medication as directed and finish all the medication. You should follow up with your urologist, Dr. Chris Burton when you finish the antibiotics. He may want to take a urine sample to make sure you cleared the infection. You should also follow up with your government affairs fellow, Dr. Francois, and tell him you had an echocardiagram done during your hospital stay. Referrals: Sathish Francois MD [Non Staff, Medical] - Alecia Mary MD [Staff Physician] - Disposition: HOME - Home Medications Comprehensive Discharge Medication List: Ambulatory Orders Lovastatin 40 mg PO HS 12/17/11 Topiramate [Topamax] 50 mg PO BID 12/17/11 Cholecalciferol (Vitamin D3) [Vitamin D3 -] 400 unit PO DAILY 03/12/19 Aspirin Coated [Ecotrin -] 81 mg PO HS 03/13/19 Pantoprazole Sodium [Protonix -] 20 mg PO DAILY 03/13/19
[2019-03-13] MEDS ORDERED: ASPIRIN COATED 81 MG TABLET.EC PO SCH (22:00)
[2019-03-13] MEDS ORDERED: ATORVASTATIN CA 10 MG TABLET (FP) PO SCH (22:00)
[2019-03-14] MEDS ORDERED: PANTOPRAZOLE 20 MG TABLET (FP) PO SCH (10:00)
== END 2019-03-13 15:43 | disposition home or self-care (01) ==
LOC: FER 17:50 → FM/S 22:15 → UNDOADMOB 23:05
PROVIDERS: ADMIT Internal Medicine; ATTEND Nurse Practitioner Acute Care
PROC: 3E03329 Introduction of Other Anti-infective into Peripheral Vein, Percutaneous Approach (ICD-10-PCS; principal; 2019-03-12)
PROC: 3E033NZ Introduction of Analgesics, Hypnotics, Sedatives into Peripheral Vein, Percutaneous Approach (ICD-10-PCS; 2019-03-12)
DX: N30.00 Acute cystitis without hematuria (principal); I10 Essential (primary) hypertension; E78.5 Hyperlipidemia, unspecified; I25.10 Atherosclerotic heart disease of native coronary artery without angina pectoris; N31.9 Neuromuscular dysfunction of bladder, unspecified; N32.81 Overactive bladder; N26.1 Atrophy of kidney (terminal); N40.0 Benign prostatic hyperplasia without lower urinary tract symptoms; G40.909 Epilepsy, unspecified, not intractable, without status epilepticus; R50.9 Fever, unspecified; R06.02 Shortness of breath
CPT/HCPCS: 36415; 71046-TC-FY; 80048; 80053; 80061; 81003; 81015; 82550; 83605; 83880; 84484; 85025; 87040; 87086; 93005; 93306-TC; 94761; 96365; 96375; 99284-25; G0378; J0131

== ENCOUNTER 2022-06-09 08:45 | Day surgery (SDC) | payer OTHER ==
[2022-05-10 14:22] VITALS: BMI 29.6
[2022-06-09] MEDS ORDERED: NEO/POLYMYX B SULF/DEXAMETH OPHTHALMIC 5ML BOTTLE ONE (09:10)
[2022-06-09] MEDS ORDERED: BSS (NA/CA/MG/K) BALANCED SALT SOLUTION OPHTH SOLN 15 ML BOTTLE ONE (09:10)
[2022-06-09] MEDS ORDERED: CARBACHOL 0.01% INTRA-OCULAR 1.5 ML VIAL ONE (09:10)
[2022-06-09 09:37] VITALS: RESP 18
[2022-06-09] MEDS: PHENYLEPHRINE 2.5% OPHTH SOLN 15 ML BOTTLE ONE ×3 (09:40→09:50)
[2022-06-09] MEDS: CIPROFLOXACIN 0.3% EYE DROPS 5 ML BOTTLE ONE ×3 (09:40→09:50)
[2022-06-09] MEDS: TROPICAMIDE 1% OPHTH SOLN 15 ML BOTTLE ONE ×3 (09:40→09:50)
[2022-06-09] MEDS: CYCLOPENTOLATE 2% OPHTH SOLN 2 ML BOTTLE ONE ×3 (09:40→09:50)
[2022-06-09] MEDS ORDERED: MIDAZOLAM HCL 2 MG/2 ML SINGLE DOSE VIAL ONE (11:03)
[2022-06-09 11:42] VITALS: TEMP 97.8
[2022-06-09 11:56] VITALS: BP 125/75; PULSE 77
== END 2022-06-09 12:00 | disposition home or self-care (01) ==
LOC: FASU 08:45
PROVIDERS: ATTEND Ophthalmology
PROC: 08RJ3JZ Replacement of Right Lens with Synthetic Substitute, Percutaneous Approach (ICD-10-PCS; principal; 2022-06-09 11:08)
DX: H26.8 Other specified cataract (principal)

== ENCOUNTER 2023-12-11 01:51 | Inpatient (IN) | payer OTHER ==
[2023-12-11 01:58] VITALS: BMI 29.7
[2023-12-11 03:14] LABS: HEMATOCRIT 41.6 % (35.4-49); MCH 30.6 pg (25.7-33.7); MCHC 33.7 g/dl (32.0-35.9); MEAN CELL VOLUME 90.7 fl (80-96); MEAN PLT VOLUME 7.7 fl (7.5-11.1); PLATELET COUNT 180 10^3/uL (134-434); RBC 4.59 M/mm3 (4.00-5.60); RDW 14.3 % (11.9-15.9); WHITE BLOOD COUNT 5.4 K/mm3 (4.0-10.0)
[2023-12-11 03:33] LABS: POTASSIUM 4.3 mmol/L (3.5-5.1)
[2023-12-11 03:35] LABS: CALCIUM 8.8 mg/dL (8.5-10.1)
[2023-12-11 03:37] LABS: BLOOD UREA NITROGEN 34.1 mg/dL (7-18)
[2023-12-11 03:39] LABS: CREATININE 2.4 mg/dL (0.55-1.3)
[2023-12-11 03:41] LABS: BILIRUBIN,TOTAL 1.7 mg/dL (0.2-1); TOT PROT 6.3 g/dl (6.4-8.2)
[2023-12-11 04:34] LABS: EPI CELLS 20 /uL (0-25.1); HYALINE CASTS 1 /uL (0-3.1); PH,URINE 5.5 (5.0-8.0); URINE APPEARANCE CLEAR; URINE BILIRUBIN NEGATIVE (NEGATIVE); URINE COLOR DK YELLOW; URINE GLUCOSE (UA) NEGATIVE (NEGATIVE); URINE KETONE TRACE (NEGATIVE); URINE LEUK ESTERASE TRACE (NEGATIVE); URINE NITRITE NEGATIVE (NEGATIVE); URINE PROTEIN TRACE (NEGATIVE); URINE RBC 4 /uL (0-23.9); URINE UROBILINOGEN 0.2 mg/dL (0.2-1.0); URINE WBC 34 /uL (0-25.8)
[2023-12-11] MEDS ORDERED: cefTRIAXone SODIUM 1 GM VIAL ONE (05:01)
[2023-12-11] MEDS ORDERED: ACETAMINOPHEN INJECTION 100 ML IVPB ONE (05:01)
[2023-12-11] MEDS: ACETAMINOPHEN 1000 MG/100 ML BAG IVPB ONE (05:09)
[2023-12-11] MEDS: CEFTRIAXONE 1,000 MG in DEXTROSE 5%-WATER - 50 ML IVPB ONE (05:09)
[2023-12-11] MEDS: SODIUM CHLORIDE 0.9% 500 ML INFUS.BAG IV ONE (05:09)
[2023-12-11] MEDS ORDERED: AZITHROMYCIN 500 MG VIAL IVPB ONE (05:11)
[2023-12-11] MEDS: AZITHROMYCIN IVPB 500 MG in DEXTROSE 5%-WATER - 250 ML IVPB ONE (06:10)
[2023-12-11 08:49] LABS: URINE BACTERIA 2.9 /uL (0-1359)
[2023-12-11] MEDS ORDERED: ACETAMINOPHEN 1000 MG/100 ML BAG IVPB PRN (11:00)
[2023-12-11] MEDS: SODIUM CHLORIDE 1,000 ML IV SCH (12:00)
[2023-12-11] MEDS ORDERED: ALBUTEROL SO4 0.083% IH SOL 2.5 MG/3 ML VIAL.NEB. NEB PRN (13:38)
[2023-12-11] MEDS: HEPARIN NA (PORCINE) 5,000 UNITS/ML 1ML VIAL SQ SCH (16:21)
[2023-12-11 17:02] LABS: EPI CELLS >36 /uL (0-25.1); HYALINE CASTS 3 /uL (0-3.1); URINE APPEARANCE CLOUDY; URINE BACTERIA 3 /uL (0-1359); URINE BILIRUBIN 1+ (NEGATIVE); URINE COLOR DK YELLOW; URINE GLUCOSE (UA) NEGATIVE (NEGATIVE); URINE KETONE TRACE (NEGATIVE); URINE LEUK ESTERASE NEGATIVE (NEGATIVE); URINE NITRITE NEGATIVE (NEGATIVE); URINE PROTEIN 1+ (NEGATIVE)
[2023-12-11] MEDS: PIPERACILLIN/TAZOB 3.375 GM 3.375 GM in DEXTROSE 5%-WATER - 50 ML IVPB SCH (17:56)
[2023-12-11 20:15] LABS: URINE RBC 22 /uL (0-23.9); URINE WBC 61 /uL (0-25.8)
[2023-12-11 20:17] LABS: URINE CRYSTALS MODERATE /hpf
[2023-12-11] MEDS: ATORVASTATIN CA 40 MG TABLET (FP) PO SCH (22:18)
[2023-12-12 09:08] LABS: INR 1.42 (0.83-1.09); PROTHROMBIN TIME (PATIENT) 16.4 SEC (9.7-13.0)
[2023-12-12 09:11] LABS: HEMATOCRIT 37.3 % (35.4-49); HEMOGLOBIN 12.7 GM/dL (11.7-16.9); MCH 30.7 pg (25.7-33.7); MEAN CELL VOLUME 90.2 fl (80-96); MEAN PLT VOLUME 8.1 fl (7.5-11.1); PLATELET COUNT 139 10^3/uL (134-434); RBC 4.14 M/mm3 (4.00-5.60); RDW 14.4 % (11.9-15.9); WHITE BLOOD COUNT 14.3 K/mm3 (4.0-10.0)
[2023-12-12 09:28] LABS: POTASSIUM 3.9 mmol/L (3.5-5.1)
[2023-12-12 09:35] LABS: ALBUMIN 2.5 g/dl (3.4-5.0); BLOOD UREA NITROGEN 49.6 mg/dL (7-18); CALCIUM 8.2 mg/dL (8.5-10.1); MAGNESIUM 1.9 mg/dL (1.8-2.4)
[2023-12-12 09:38] LABS: PHOSPHOROUS 1.9 mg/dL (2.5-4.9)
[2023-12-12 09:40] LABS: BILIRUBIN,TOTAL 0.8 mg/dL (0.2-1); TOT PROT 5.7 g/dl (6.4-8.2)
[2023-12-12] MEDS ORDERED: CEFTRIAXONE 1 GM in DEXTROSE 5%-WATER - 50 ML IVPB SCH (10:00)
[2023-12-12 10:23] LABS: ANISOCYTOSIS 0; MACROCYTOSIS 0
[2023-12-12] MEDS: AZITHROMYCIN IVPB 500 MG/250 ML BAG IVPB SCH (10:48)
[2023-12-12] MEDS: ASPIRIN 81 MG CHEWABLE TABLETS PO SCH (10:49)
[2023-12-12] MEDS: PANTOPRAZOLE 40 MG TABLET PO SCH (10:49)
[2023-12-12] MEDS: ACETAMINOPHEN 325 MG TABLET (FP) PO PRN (15:20)
[2023-12-12] MEDS: IBUPROFEN 400 MG TABLET (FP) PO ONE (16:13)
[2023-12-12] MEDS ORDERED: IOHEXOL (OMNIPAQUE PO) 12 MG/ML - 500 ML BOTTLE PO ONE (20:01)
[2023-12-12] MEDS: LACTATED RINGERS SOLUTION 1,000 ML/1,000 ML INFUS.BAG IV STA (22:30)
[2023-12-13 07:50] LABS: BASO % 0.3 % (0-2.0); EOS % 0.7 % (0-4.5); HEMATOCRIT 35.1 % (35.4-49); LYMPH % 14.2 % (8-40); MCH 30.8 pg (25.7-33.7); MCHC 34.4 g/dl (32.0-35.9); MEAN CELL VOLUME 89.6 fl (80-96); MEAN PLT VOLUME 8.8 fl (7.5-11.1); MONO % 9.3 % (3.8-10.2); NEUT % 75.5 % (42.8-82.8); PLATELET COUNT 120 10^3/uL (134-434); RBC 3.92 M/mm3 (4.00-5.60); RDW 14.6 % (11.9-15.9); WHITE BLOOD COUNT 12.2 K/mm3 (4.0-10.0)
[2023-12-13 08:03] LABS: POTASSIUM 3.9 mmol/L (3.5-5.1)
[2023-12-13 08:18] LABS: ALBUMIN 2.3 g/dl (3.4-5.0); BLOOD UREA NITROGEN 51.7 mg/dL (7-18); CALCIUM 7.7 mg/dL (8.5-10.1)
[2023-12-13 08:23] LABS: BILIRUBIN,TOTAL 0.8 mg/dL (0.2-1); TOT PROT 5.3 g/dl (6.4-8.2)
[2023-12-13] MEDS: SODIUM CHLORIDE 1,000 ML IV SCH (10:02)
[2023-12-13] MEDS: NYSTATIN 100,000 UNIT/GM TOPICAL CREAM 15 GM TUBE TP SCH (22:00)
[2023-12-14 07:26] LABS: BASO % 0.3 % (0-2.0); EOS % 1.1 % (0-4.5); HEMATOCRIT 36.4 % (35.4-49); HEMOGLOBIN 12.2 GM/dL (11.7-16.9); LYMPH % 13.2 % (8-40); MCH 30.1 pg (25.7-33.7); MCHC 33.4 g/dl (32.0-35.9); MEAN CELL VOLUME 90.2 fl (80-96); MEAN PLT VOLUME 8.4 fl (7.5-11.1); NEUT % 73.4 % (42.8-82.8); PLATELET COUNT 151 10^3/uL (134-434); RBC 4.04 M/mm3 (4.00-5.60); RDW 14.7 % (11.9-15.9); WHITE BLOOD COUNT 10.8 K/mm3 (4.0-10.0)
[2023-12-14 07:51] LABS: POTASSIUM 3.7 mmol/L (3.5-5.1)
[2023-12-14 07:58] LABS: ALBUMIN 2.2 g/dl (3.4-5.0); BLOOD UREA NITROGEN 37.8 mg/dL (7-18); CALCIUM 8.2 mg/dL (8.5-10.1)
[2023-12-14 08:02] LABS: CREATININE 2.3 mg/dL (0.55-1.3)
[2023-12-14 08:03] LABS: BILIRUBIN,TOTAL 0.9 mg/dL (0.2-1)
[2023-12-14 08:04] LABS: TOT PROT 5.3 g/dl (6.4-8.2)
[2023-12-14] MEDS: CEFTRIAXONE 1 GM in DEXTROSE 5%-WATER - 50 ML IVPB SCH (10:59)
[2023-12-14] MEDS: TIMOLOL 0.25% OPHTHALMIC SOL 5 ML BOTTLE OS SCH (11:00)
[2023-12-15 07:09] LABS: HEMATOCRIT 35.5 % (35.4-49); HEMOGLOBIN 11.8 GM/dL (11.7-16.9); MCH 30.1 pg (25.7-33.7); MCHC 33.2 g/dl (32.0-35.9); MEAN CELL VOLUME 90.8 fl (80-96); PLATELET COUNT 146 10^3/uL (134-434); RBC 3.91 M/mm3 (4.00-5.60); RDW 14.7 % (11.9-15.9); WHITE BLOOD COUNT 10.1 K/mm3 (4.0-10.0)
[2023-12-15 07:23] LABS: POTASSIUM 3.7 mmol/L (3.5-5.1)
[2023-12-15 07:26] LABS: CALCIUM 7.6 mg/dL (8.5-10.1)
[2023-12-15 07:27] LABS: ALBUMIN 2.2 g/dl (3.4-5.0)
[2023-12-15 07:29] LABS: CREATININE 2.1 mg/dL (0.55-1.3)
[2023-12-15 07:31] LABS: BILIRUBIN,TOTAL 0.9 mg/dL (0.2-1); TOT PROT 5.2 g/dl (6.4-8.2)
[2023-12-15 10:35] VITALS: BP 101/59; PULSE 74; RESP 16; TEMP 98.8
== END 2023-12-15 11:18 | disposition home health service (06) | DRG 872 ==
LOC: FER 01:51 → JERBED 04:57 → J7W 11:21 → J4W 12-12 20:45
PROVIDERS: ADMIT Internal Medicine; ATTEND Internal Medicine
DX: A41.89 Other specified sepsis (principal); N39.0 Urinary tract infection, site not specified; N17.9 Acute kidney failure, unspecified; Q60.0 Renal agenesis, unilateral; B96.20 Unspecified Escherichia coli [E. coli] as the cause of diseases classified elsewhere; E78.5 Hyperlipidemia, unspecified; K21.9 Gastro-esophageal reflux disease without esophagitis; N18.9 Chronic kidney disease, unspecified; N31.9 Neuromuscular dysfunction of bladder, unspecified; I25.10 Atherosclerotic heart disease of native coronary artery without angina pectoris; Z95.5 Presence of coronary angioplasty implant and graft; R50.9 Fever, unspecified; H40.9 Unspecified glaucoma
CPT/HCPCS: 0241U-QW; 36415; 71045-TC-FY; 74176-TC; 76775-TC; 80053; 81003; 82550; 83605; 83735; 83880; 84100; 84484; 85025; 85027; 85610; 85730; 87040; 87070; 87086; 87186; 87205; 87899; 93005; 93306-TC; 97116-GP; 97161-GP; 99285-25; J0131; J1644